=== PATIENT | female | born 1985 | race Two or more races ===

== ENCOUNTER 2022-10-31 10:19 | Inpatient (IN) | payer OTHER ==
[2022-10-31 12:05] LABS: EPI CELLS 16 /uL (0-25.1); HYALINE CASTS 0 /uL (0-3.1); PH,URINE 6.5 (5.0-8.0); URINE APPEARANCE CLEAR; URINE BACTERIA 459 /uL (0-1359); URINE BILIRUBIN NEGATIVE (NEGATIVE); URINE COLOR YELLOW; URINE GLUCOSE (UA) NEGATIVE (NEGATIVE); URINE KETONE NEGATIVE (NEGATIVE); URINE LEUK ESTERASE 1+ (NEGATIVE); URINE NITRITE NEGATIVE (NEGATIVE); URINE PROTEIN 1+ (NEGATIVE); URINE RBC 10 /uL (0-23.9); URINE UROBILINOGEN 0.2 mg/dL (0.2-1.0); URINE WBC 26 /uL (0-25.8)
[2022-10-31] MEDS ORDERED: LABETALOL HCL 20 MG/4 ML VIAL IVPUSH ONE (12:24)
[2022-10-31] MEDS ORDERED: ELECTROLYTE-148 SOLN 1,000 ML IV SCH (12:30)
[2022-10-31] MEDS: LABETALOL HCL 200 MG TABLET (FP) PO SCH ×2 (12:47→22:00)
[2022-10-31] MEDS ORDERED: LABETALOL HCL 100 MG TABLET (FP) ONE (12:47)
[2022-10-31 13:22] LABS: RETICULOCYTES 1.99 % (0.5-1.5)
[2022-10-31 13:34] LABS: BASO % 0.3 % (0-2.0); EOS % 0.5 % (0-4.5); HEMATOCRIT 28.6 % (32.4-45.2); HEMOGLOBIN 9.3 GM/dL (10.7-15.3); LYMPH % 37.9 % (8-40); MCH 23.4 pg (25.7-33.7); MCHC 32.6 g/dl (32.0-36.0); MEAN CELL VOLUME 71.6 fl (80-96); MEAN PLT VOLUME 7.8 fl (7.5-11.1); MONO % 5.6 % (3.8-10.2); NEUT % 55.7 % (42.8-82.8); PLATELET COUNT 247 10^3/uL (134-434); RDW 17.3 % (11.6-15.6); WHITE BLOOD COUNT 8.7 K/mm3 (4.0-10.0)
[2022-10-31] MEDS ORDERED: BETAMET ACET/BETAMET NA PH 30 MG/5 ML VIAL IM ONE (13:37)
[2022-10-31 13:41] LABS: INR 0.97 (0.83-1.09); PROTHROMBIN TIME (PATIENT) 11.2 SEC (9.7-13.0)
[2022-10-31 13:44] LABS: ACTIVATED PTT 27.5 SECONDS (25.2-36.5)
[2022-10-31 13:47] VITALS: BMI 32.6
[2022-10-31 14:10] LABS: URIC ACID 4.1 mg/dL (2.6-7.2)
[2022-10-31 14:15] LABS: CALCIUM 8.4 mg/dL (8.5-10.1)
[2022-10-31 14:16] LABS: ALBUMIN 2.5 g/dl (3.4-5.0)
[2022-10-31 14:17] LABS: BLOOD UREA NITROGEN 6.1 mg/dL (7-18)
[2022-10-31 14:20] LABS: CREATININE 0.4 mg/dL (0.55-1.3)
[2022-10-31 14:21] LABS: TOT PROT 6.3 g/dl (6.4-8.2)
[2022-10-31 14:22] LABS: BILIRUBIN,TOTAL 0.6 mg/dL (0.2-1)
[2022-10-31 14:42] LABS: OPIATES, URI NEGATIVE (NEGATIVE); PHENCYCLIDINE,URINE NEGATIVE (NEGATIVE); URINE BARBITURATES NEGATIVE (NEGATIVE)
[2022-10-31 14:43] LABS: METHADONE, UR NEGATIVE (NEGATIVE); URINE BENZODIAZEPINES NEGATIVE (NEGATIVE)
[2022-10-31 15:00] LABS: COCAINE, UR NEGATIVE (NEGATIVE); URINE AMPHETAMINES NEGATIVE (NEGATIVE)
[2022-10-31] MEDS: FERROUS SO4 325 MG TABLET (FP) PO SCH (22:35)
[2022-10-31] MEDS: INSULIN (LEVEMIR) 100 UNITS/ML UNITS SQ SCH (22:35)
[2022-10-31] MEDS: ASCORBIC ACID 500 MG TABLET (FP) PO SCH (22:35)
[2022-11-01] MEDS ORDERED: LABETALOL HCL 200 MG TABLET (FP) PO SCH
[2022-11-01] MEDS: ASCORBIC ACID 500 MG TABLET (FP) PO SCH ×2 (09:50→22:09)
[2022-11-01] MEDS: FERROUS SO4 325 MG TABLET (FP) PO SCH ×2 (09:50→21:57)
[2022-11-01] MEDS: LABETALOL HCL 200 MG TABLET (FP) PO SCH ×2 (09:51→21:57)
[2022-11-01] MEDS ORDERED: INSULIN SLIDING SCALE (NOVOLOG) 1 VIAL SQ ONE ×4 (11:20→17:19)
[2022-11-01] MEDS ORDERED: INSULIN (NOVOLOG) ASPART 100 UNITS/ML 10ML VIAL SQ ONE ×2 (11:30→13:45)
[2022-11-01] MEDS: INSULIN (NOVOLOG) ASPART 100 UNITS/ML 10ML VIAL SQ SCH (17:24)
[2022-11-01 20:38] LABS: SYPHILIS W/ RPR CONF NON-REACTIVE (NONREACTIVE)
[2022-11-01 21:07] LABS: HIV INTERPRETATION NEGATIVE (NEGATIVE)
[2022-11-01] MEDS: INSULIN (LEVEMIR) 100 UNITS/ML UNITS SQ SCH (21:58)
[2022-11-02] MEDS ORDERED: INSULIN SLIDING SCALE (NOVOLOG) 1 VIAL SQ ONE (08:01)
[2022-11-02] MEDS: INSULIN (NOVOLOG) ASPART 100 UNITS/ML 10ML VIAL SQ SCH ×2 (08:09→11:23)
[2022-11-02] MEDS: FERROUS SO4 325 MG TABLET (FP) PO SCH (09:32)
[2022-11-02] MEDS: ASCORBIC ACID 500 MG TABLET (FP) PO SCH (09:33)
[2022-11-02] MEDS: LABETALOL HCL 200 MG TABLET (FP) PO SCH (09:33)
[2022-11-02 09:47] VITALS: BP 124/75; PULSE 74; RESP 16; TEMP 98.8
[2022-11-02] MEDS ORDERED: PRENATAL VITAMINS W/ FOLIC ACID TABLET (FP) PO SCH (10:00)
[2022-11-02 10:45] LABS: BASO % 0.2 % (0-2.0); EOS % 0.1 % (0-4.5); HEMATOCRIT 24.9 % (32.4-45.2); HEMOGLOBIN 8.2 GM/dL (10.7-15.3); LYMPH % 31.4 % (8-40); MCH 23.5 pg (25.7-33.7); MCHC 32.8 g/dl (32.0-36.0); MEAN CELL VOLUME 71.6 fl (80-96); MEAN PLT VOLUME 7.7 fl (7.5-11.1); MONO % 7.7 % (3.8-10.2); NEUT % 60.6 % (42.8-82.8); PLATELET COUNT 244 10^3/uL (134-434); RBC 3.47 M/mm3 (3.60-5.2); RDW 17.6 % (11.6-15.6); WHITE BLOOD COUNT 8.1 K/mm3 (4.0-10.0)
[2022-11-02 11:07] LABS: URIC ACID 5.1 mg/dL (2.6-7.2)
[2022-11-03] MEDS ORDERED: PATIENT'S OWN MEDICATION (NON-FORMULARY) (Insulin Glargine,Hum.Rec.Anlog [Basaglar Kwikpen SQ SCH (07:00)
[2022-11-05 14:08] LABS: ALPHA-1 FOR UPE 5.1 % (.); TOTAL PROTEIN, URINE 37.4 mg/dL (Not Estab.)
== END 2022-11-02 12:56 | disposition home or self-care (01) | DRG 566 ==
LOC: JDEL 10:19 → JLDR 12:15 → J3W 22:12
PROVIDERS: ADMIT Obstetrics & Gynecology; ATTEND Obstetrics & Gynecology
DX: O13.3 Gestational [pregnancy-induced] hypertension without significant proteinuria, third trimester (principal); O99.283 Endocrine, nutritional and metabolic diseases complicating pregnancy, third trimester; O24.113 Pre-existing type 2 diabetes mellitus, in pregnancy, third trimester; Z3A.36 36 weeks gestation of pregnancy; E28.2 Polycystic ovarian syndrome; O99.213 Obesity complicating pregnancy, third trimester
CPT/HCPCS: 36415; 59025; 80053; 80307; 81003; 82575; 82962; 82977; 83010; 83036; 84156; 84166; 84450; 84460; 84550; 85025; 85032; 85045; 85610; 85730; 86780; 86850; 86900; 86901; 87389; 96372; C9803-CS; U0003; U0005

== ENCOUNTER 2022-11-12 14:20 | Inpatient (IN) | payer OTHER ==
[2022-11-12 15:29] VITALS: BMI 31.9
[2022-11-12 15:49] LABS: BASO % 0.5 % (0-2.0); EOS % 0.6 % (0-4.5); HEMATOCRIT 30.1 % (32.4-45.2); HEMOGLOBIN 9.5 GM/dL (10.7-15.3); LYMPH % 37.9 % (8-40); MCH 23.4 pg (25.7-33.7); MCHC 31.5 g/dl (32.0-36.0); MEAN CELL VOLUME 74.1 fl (80-96); MEAN PLT VOLUME 8.3 fl (7.5-11.1); MONO % 6.6 % (3.8-10.2); NEUT % 54.4 % (42.8-82.8); PLATELET COUNT 220 10^3/uL (134-434); RBC 4.07 M/mm3 (3.60-5.2); RDW 21.3 % (11.6-15.6)
[2022-11-12 15:51] LABS: RETICULOCYTES 3.33 % (0.5-1.5)
[2022-11-12 15:55] LABS: INR 0.98 (0.83-1.09); PROTHROMBIN TIME (PATIENT) 11.4 SEC (9.7-13.0)
[2022-11-12 15:55] LABS: URINE APPEARANCE CLOUDY; URINE BILIRUBIN NEGATIVE (NEGATIVE); URINE COLOR YELLOW; URINE GLUCOSE (UA) NEGATIVE (NEGATIVE); URINE KETONE TRACE (NEGATIVE); URINE PROTEIN 1+ (NEGATIVE)
[2022-11-12 15:56] LABS: EPI CELLS 67.4 /uL (0-25.1); HYALINE CASTS 1.88 /uL (0-3.1); URINE BACTERIA 731.5 /uL (0-1359); URINE LEUK ESTERASE 3+ (NEGATIVE); URINE NITRITE NEGATIVE (NEGATIVE); URINE RBC 15.5 /uL (0-23.9)
[2022-11-12 15:58] LABS: ACTIVATED PTT 27.2 SECONDS (25.2-36.5)
[2022-11-12 16:05] LABS: COCAINE, UR NEGATIVE (NEGATIVE)
[2022-11-12 16:06] LABS: PHENCYCLIDINE,URINE NEGATIVE (NEGATIVE); URINE AMPHETAMINES NEGATIVE (NEGATIVE); URINE BARBITURATES NEGATIVE (NEGATIVE); URINE BENZODIAZEPINES NEGATIVE (NEGATIVE)
[2022-11-12 16:12] LABS: CALCIUM 8.4 mg/dL (8.5-10.1)
[2022-11-12 16:13] LABS: BLOOD UREA NITROGEN 8.5 mg/dL (7-18)
[2022-11-12 16:15] LABS: URIC ACID 5.3 mg/dL (2.6-7.2)
[2022-11-12 16:16] LABS: CREATININE 0.6 mg/dL (0.55-1.3)
[2022-11-12] MEDS ORDERED: DINOPROSTONE 10 MG VAGINAL SUPPOSITORY VG STA (16:21)
[2022-11-12] MEDS ORDERED: BUTORPHANOL TARTRATE 2 MG/ML VIAL IVPB PRN (16:21)
[2022-11-12 16:34] LABS: METHADONE, UR NEGATIVE (NEGATIVE); OPIATES, URI NEGATIVE (NEGATIVE)
[2022-11-12] MEDS ORDERED: AMPICILLIN - 2 GM in SODIUM CHLORIDE 100 ML IVPB ONE (16:39)
[2022-11-12] MEDS: DEXTROSE 5%-LACTATED RINGERS 1,000 ML IV SCH (16:45)
[2022-11-12 17:03] LABS: ANISOCYTOSIS 3+; MACROCYTOSIS 0
[2022-11-12 17:07] LABS: HIV INTERPRETATION NEGATIVE (NEGATIVE)
[2022-11-12] MEDS ORDERED: INSULIN (NOVOLOG) ASPART 100 UNITS/ML 10ML VIAL ONE ×2 (19:24→19:27)
[2022-11-12] MEDS: INSULIN (NOVOLOG) ASPART 100 UNITS/ML 10ML VIAL SQ SCH (19:40)
[2022-11-12] MEDS ORDERED: INSULIN (LEVEMIR) 100 UNITS/ML UNITS SQ SCH (22:00)
[2022-11-12] MEDS: LABETALOL HCL 200 MG TABLET (FP) PO SCH (22:09)
[2022-11-12] MEDS: metroNIDAZOLE 250 MG TABLET PO SCH (22:42)
[2022-11-12] MEDS ORDERED: BUTORPHANOL TARTRATE 2 MG/ML VIAL ONE (23:36)
[2022-11-13] MEDS ORDERED: OXYTOCIN 30 UNITS in 0.9% NS 30 UNIT/500 ML INFUS.BAG IVPB SCH (03:15)
[2022-11-13] MEDS ORDERED: OXYTOCIN 30 UNITS in 0.9% NS 30 UNIT/500 ML INFUS.BAG IVPB ONE (03:52)
[2022-11-13] MEDS: DEXTROSE 5%-LACTATED RINGERS 1,000 ML IV SCH ×2 (06:14→16:45)
[2022-11-13] MEDS: INSULIN (NOVOLOG) ASPART 100 UNITS/ML 10ML VIAL SQ SCH ×3 (07:00→17:00)
[2022-11-13] MEDS: AMPICILLIN - 1 GM in SODIUM CHLORIDE 100 ML IVPB SCH ×4 (09:07→20:45)
[2022-11-13] MEDS: LABETALOL HCL 200 MG TABLET (FP) PO SCH ×2 (10:00→22:05)
[2022-11-13] MEDS ORDERED: LABETALOL HCL 100 MG TABLET (FP) ONE ×3 (10:40→22:04)
[2022-11-13] MEDS ORDERED: INSULIN (NOVOLOG) ASPART 100 UNITS/ML 10ML VIAL ONE ×2 (10:56→17:01)
[2022-11-13] MEDS: metroNIDAZOLE 250 MG TABLET PO SCH ×2 (11:00→22:05)
[2022-11-13] MEDS ORDERED: DINOPROSTONE 10 MG VAGINAL SUPPOSITORY VG STA (16:43)
[2022-11-13] MEDS: ELECTROLYTE-148 SOLN 1,000 ML IV SCH (16:49)
[2022-11-14] MEDS: ELECTROLYTE-148 SOLN 1,000 ML IV SCH (01:00)
[2022-11-14] MEDS ORDERED: BUTORPHANOL TARTRATE 2 MG/ML VIAL IVPB ONE (01:00)
[2022-11-14] MEDS ORDERED: PROMETHAZINE HCL 25 MG/1 ML VIAL IVPB ONE (01:00)
[2022-11-14] MEDS ORDERED: AMPICILLIN SODIUM 2 GM VIAL ONE (05:38)
[2022-11-14] MEDS: AMPICILLIN - 1 GM in SODIUM CHLORIDE 100 ML IVPB SCH (05:49)
[2022-11-14] MEDS ORDERED: OXYTOCIN 30 UNITS in 0.9% NS 30 UNIT/500 ML INFUS.BAG IVPB SCH (07:00)
[2022-11-14] MEDS ORDERED: OXYTOCIN 30 UNITS in 0.9% NS 30 UNIT/500 ML INFUS.BAG IVPB ONE (07:12)
[2022-11-14] MEDS ORDERED: INSULIN (NOVOLOG) ASPART 100 UNITS/ML 10ML VIAL ONE (07:59)
[2022-11-14] MEDS: INSULIN (NOVOLOG) ASPART 100 UNITS/ML 10ML VIAL SQ SCH (08:00)
[2022-11-14 08:33] VITALS: RESP 18; TEMP 97.8
[2022-11-14 09:31] VITALS: BP 126/61; PULSE 79
[2022-11-14] MEDS: metroNIDAZOLE 250 MG TABLET PO SCH (10:00)
[2022-11-14] MEDS ORDERED: AMPICILLIN SODIUM 1 GM VIAL ONE (10:06)
[2022-11-14] MEDS: LABETALOL HCL 200 MG TABLET (FP) PO SCH (10:31)
== END 2022-11-14 11:01 | disposition home or self-care (01) | DRG 951 ==
LOC: JLDR 14:20
PROVIDERS: ADMIT Obstetrics & Gynecology; ATTEND Obstetrics & Gynecology
PROC: 3E0P7VZ Introduction of Hormone into Female Reproductive, Via Natural or Artificial Opening (ICD-10-PCS; principal; 2022-11-12)
DX: O61.0 Failed medical induction of labor (principal); O13.3 Gestational [pregnancy-induced] hypertension without significant proteinuria, third trimester; O99.213 Obesity complicating pregnancy, third trimester; Z3A.38 38 weeks gestation of pregnancy; O24.419 Gestational diabetes mellitus in pregnancy, unspecified control
CPT/HCPCS: 36415; 80048; 80307; 81003; 82570; 82962; 82977; 83010; 84156; 84450; 84460; 84550; 85025; 85032; 85045; 85610; 85730; 86780; 86850; 86900; 86901; 87389; C9803-CS; G0480; U0003; U0005

== ENCOUNTER 2022-11-16 07:30 | Inpatient (IN) | payer OTHER ==
[2022-11-16] MEDS: DEXTROSE 5%-LACTATED RINGERS 1,000 ML IV SCH ×3 (09:00→22:59)
[2022-11-16 09:13] VITALS: BMI 31.9
[2022-11-16 09:15] LABS: BASO % 0.4 % (0-2.0); EOS % 0.6 % (0-4.5); LYMPH % 37.2 % (8-40); MCH 23.4 pg (25.7-33.7); MCHC 32.1 g/dl (32.0-36.0); MEAN CELL VOLUME 72.9 fl (80-96); MEAN PLT VOLUME 8.3 fl (7.5-11.1); MONO % 7.2 % (3.8-10.2); NEUT % 54.6 % (42.8-82.8); PLATELET COUNT 232 10^3/uL (134-434); RBC 4.25 M/mm3 (3.60-5.2); WHITE BLOOD COUNT 6.7 K/mm3 (4.0-10.0)
[2022-11-16] MEDS: MISOPROSTOL 100 MCG TABLET PV SCH ×4 (10:10→23:37)
[2022-11-16 10:17] LABS: ALBUMIN 2.4 g/dl (3.4-5.0); BLOOD UREA NITROGEN 10.2 mg/dL (7-18); CALCIUM 8.5 mg/dL (8.5-10.1)
[2022-11-16 10:20] LABS: CREATININE 0.5 mg/dL (0.55-1.3)
[2022-11-16 10:22] LABS: BILIRUBIN,TOTAL 0.2 mg/dL (0.2-1)
[2022-11-16] MEDS ORDERED: LABETALOL HCL 200 MG TABLET (FP) PO ONE (10:29)
[2022-11-16] MEDS ORDERED: LABETALOL HCL 100 MG TABLET (FP) ONE (10:38)
[2022-11-16] MEDS ORDERED: INSULIN (NOVOLOG) ASPART 100 UNITS/ML 10ML VIAL SQ ONE (12:10)
[2022-11-16] MEDS ORDERED: SODIUM CHLORIDE 500 ML IV STA (15:55)
[2022-11-16] MEDS ORDERED: OXYTOCIN 30 UNITS in 0.9% NS 30 UNIT/500 ML INFUS.BAG IVPB ONE (23:07)
[2022-11-16] MEDS: OXYTOCIN 30 UNITS in 0.9% NS 30 UNIT/500 ML INFUS.BAG IVPB SCH (23:10)
[2022-11-17] MEDS ORDERED: CITRIC ACID/SODIUM CITRATE 30 ML UNIT-DOSE CUP PO ONE (02:00)
[2022-11-17] MEDS ORDERED: ELECTROLYTE-148 SOLN 500 ML IV ONE (02:00)
[2022-11-17] MEDS ORDERED: OXYTOCIN 30 UNITS in 0.9% NS 30 UNIT/500 ML INFUS.BAG IVPB ONE (03:21)
[2022-11-17] MEDS ORDERED: morphine SULFATE (PF) 1 MG/2 ML SYRINGE ONE (03:22)
[2022-11-17] MEDS ORDERED: FENTANYL CITRATE/PF 50 MCG/ML VIAL ONE (03:22)
[2022-11-17] MEDS ORDERED: DEXAMETHASONE SOD PHOSPHATE 4 MG/1 ML VIAL ONE (03:42)
[2022-11-17] MEDS ORDERED: ceFAZolin SODIUM 1 GM VIAL ONE ×2 (03:42)
[2022-11-17] MEDS ORDERED: ONDANSETRON 4 MG/2 ML VIAL ONE (03:42)
[2022-11-17] MEDS ORDERED: CITRIC ACID/SODIUM CITRATE 30 ML UNIT-DOSE CUP ONE (05:04)
[2022-11-17 05:10] LABS: CORD HCO3 21.4 mmHg (20-29); CORD PCO2 52.6 mmHg (30-78); CORD pH 7.227 (7.14-7.44)
[2022-11-17 05:18] LABS: CORD HCO3 20.4 mmHg (20-29); CORD PCO2 56.2 mmHg (30-78); CORD pH 7.178 (7.14-7.44)
[2022-11-17] MEDS: OXYTOCIN 20 UNITS in 0.9% NS 20 UNIT/1,000 ML INFUS.BAG IV SCH (05:22)
[2022-11-17] MEDS ORDERED: ONDANSETRON 4 MG/2 ML VIAL IVPUSH PRN (05:48)
[2022-11-17] MEDS ORDERED: PROMETHAZINE HCL 25 MG/1 ML VIAL IVPB PRN (05:48)
[2022-11-17] MEDS: SIMETHICONE 80 MG TAB.CHEW (FP) PO PRN (23:42)
[2022-11-17] MEDS: oxyCODONE HCL 5 MG TABLET PO PRN (23:42)
[2022-11-18] MEDS: IBUPROFEN 600 MG TABLET (FP) PO PRN ×2 (07:46→14:32)
[2022-11-18 07:55] LABS: BASO % 0.4 % (0-2.0); EOS % 0.4 % (0-4.5); HEMATOCRIT 25.9 % (32.4-45.2); HEMOGLOBIN 8.7 GM/dL (10.7-15.3); LYMPH % 37.9 % (8-40); MCH 24.5 pg (25.7-33.7); MCHC 33.6 g/dl (32.0-36.0); MEAN CELL VOLUME 72.9 fl (80-96); MEAN PLT VOLUME 7.6 fl (7.5-11.1); MONO % 7.4 % (3.8-10.2); NEUT % 53.9 % (42.8-82.8); PLATELET COUNT 180 10^3/uL (134-434); RBC 3.56 M/mm3 (3.60-5.2); RDW 21.2 % (11.6-15.6); WHITE BLOOD COUNT 6.7 K/mm3 (4.0-10.0)
[2022-11-18] MEDS: MISOPROSTOL 100 MCG TABLET PV SCH ×4 (09:00→19:08)
[2022-11-18] MEDS ORDERED: DIPHTH,PERTUSS(ACELL),TET 0.5 ML DISP.SYRIN IM ONE (10:00)
[2022-11-18] MEDS: FERROUS SO4 325 MG TABLET (FP) PO SCH ×2 (12:08→17:28)
[2022-11-18] MEDS: ACETAMINOPHEN 325 MG TABLET (FP) PO PRN (15:50)
[2022-11-18] MEDS: DEXTROSE 5%-LACTATED RINGERS 1,000 ML IV SCH (17:03)
[2022-11-18] MEDS: oxyCODONE HCL 5 MG TABLET PO PRN (21:18)
[2022-11-18] MEDS: SIMETHICONE 80 MG TAB.CHEW (FP) PO PRN (21:18)
[2022-11-19] MEDS: ACETAMINOPHEN 325 MG TABLET (FP) PO PRN (06:40)
[2022-11-19] MEDS: FERROUS SO4 325 MG TABLET (FP) PO SCH ×3 (09:00→16:53)
[2022-11-19] MEDS: IBUPROFEN 600 MG TABLET (FP) PO PRN ×2 (16:47→22:53)
[2022-11-20] MEDS: ELECTROLYTE-148 SOLN 1,000 ML IV SCH ×2 (00:12→00:14)
[2022-11-20] MEDS: OXYTOCIN 30 UNITS in 0.9% NS 30 UNIT/500 ML INFUS.BAG IVPB SCH ×3 (00:12→00:15)
[2022-11-20] MEDS: DEXTROSE 5%-LACTATED RINGERS 1,000 ML IV SCH ×2 (00:12→00:15)
[2022-11-20] MEDS: OXYTOCIN 20 UNITS in 0.9% NS 20 UNIT/1,000 ML INFUS.BAG IV SCH (00:14)
[2022-11-20] MEDS: FERROUS SO4 325 MG TABLET (FP) PO SCH (09:00)
[2022-11-20 09:21] VITALS: PULSE 81; RESP 24; TEMP 98.4
[2022-11-20 09:36] VITALS: BP 145/81
[2022-11-20 09:37] LABS: BASO % 0.5 % (0-2.0); EOS % 2.5 % (0-4.5); HEMATOCRIT 29.4 % (32.4-45.2); HEMOGLOBIN 9.6 GM/dL (10.7-15.3); LYMPH % 35.3 % (8-40); MCH 23.6 pg (25.7-33.7); MCHC 32.5 g/dl (32.0-36.0); MEAN CELL VOLUME 72.6 fl (80-96); MEAN PLT VOLUME 7.9 fl (7.5-11.1); MONO % 6.5 % (3.8-10.2); NEUT % 55.2 % (42.8-82.8); PLATELET COUNT 268 10^3/uL (134-434); RBC 4.05 M/mm3 (3.60-5.2); RDW 21.1 % (11.6-15.6); WHITE BLOOD COUNT 5.9 K/mm3 (4.0-10.0)
[2022-11-20 10:46] LABS: ANISOCYTOSIS 2+; MACROCYTOSIS 0
== END 2022-11-20 11:55 | disposition home or self-care (01) | DRG 540 ==
LOC: JLDR 07:30 → J3W 11-17 07:42
PROVIDERS: ADMIT Obstetrics & Gynecology Maternal & Fetal Medicine; ATTEND Obstetrics & Gynecology Maternal & Fetal Medicine
PROC: 3E0P7VZ Introduction of Hormone into Female Reproductive, Via Natural or Artificial Opening (ICD-10-PCS; 2022-11-16)
PROC: 3E033VJ Introduction of Other Hormone into Peripheral Vein, Percutaneous Approach (ICD-10-PCS; 2022-11-16)
PROC: 10D00Z1 Extraction of Products of Conception, Low, Open Approach (ICD-10-PCS; principal; 2022-11-17)
DX: O65.5 Obstructed labor due to abnormality of maternal pelvic organs (principal); O34.43 Maternal care for other abnormalities of cervix, third trimester; O66.9 Obstructed labor, unspecified; O13.4 Gestational [pregnancy-induced] hypertension without significant proteinuria, complicating childbirth; Z79.4 Long term (current) use of insulin; O24.12 Pre-existing type 2 diabetes mellitus, in childbirth; O99.284 Endocrine, nutritional and metabolic diseases complicating childbirth; E28.2 Polycystic ovarian syndrome; Z3A.39 39 weeks gestation of pregnancy; Z37.0 Single live birth
CPT/HCPCS: 36415; 36600; 80053; 82803; 82962; 85025; 86850; 86900; 86901; 88307-TC; 90715; 94010; C9803-CS; U0003; U0005

== ENCOUNTER 2022-12-27 20:09 | Emergency (ER) | payer BC, OTHER ==
[2022-12-27 20:14] VITALS: BP 160/75; PULSE 77; RESP 18; TEMP 97.8; BMI 29.4
[2022-12-27] MEDS ORDERED: ACETAMINOPHEN 500 MG TABLET (FP) PO ONE (22:44)
[2022-12-27] MEDS ORDERED: ACETAMINOPHEN 500 MG TABLET (FP) ONE (22:47)
== END 2022-12-28 00:03 | disposition home or self-care (01) ==
LOC: JERFT 20:09
DX: S82.65XA Nondisplaced fracture of lateral malleolus of left fibula, initial encounter for closed fracture (principal); W01.0XXA Fall on same level from slipping, tripping and stumbling without subsequent striking against object, initial encounter
CPT/HCPCS: 73590-TC-LT-FY; 73590-TC-RT-FY; 73610-TC-LT-FY; 73610-TC-RT-FY; 73630-TC-LT; 73630-TC-RT-FY; 99284-25